=== PATIENT | female | born 1995 | race Caucasian/White ===

== ENCOUNTER 2017-12-22 12:46 | Emergency (ER) | payer OTHER ==
[2017-12-22 15:18] VITALS: BP 122/63
--- NOTE | 2017-12-22 15:43 | UC ---
UC General HPI - HPI Summary HPI Summary: pt is c/o R sided breast soreness and swelling. states often gets swelling and tenderness to both breasts with her period but this is different. denies hx of injury and over use. has no primary care. FMH is not known. - History of Current Complaint Chief Complaint: UCGeneralIllness Stated Complaint: BREAST/ARMPIT PAIN - RIGHT SIDE Time Seen by Provider: 12/22/17 15:33 Hx Obtained From: Patient Hx Last Menstrual Period: 11/28/17 Timing: Constant Pain Intensity: 7 - Allergy/Home Medications Allergies/Adverse Reactions: Allergies Allergy/AdvReac Type Severity Reaction Status Date / Time Adhesive Tape Allergy Rash Verified 12/22/17 15:12 Home Medications: Home Medications Ibuprofen TAB* [Motrin TAB* 400 MG] 400 mg PO Q6H PRN 12/22/17 [History Confirmed 12/22/17] PMH/Surg Hx/FS Hx/Imm Hx Previously Healthy: Yes - Surgical History Surgical History: Yes Surgery Procedure, Year, and Place: wisdom teeth - Family History Known Family History: Positive: Unknown - Social History Occupation: Student Alcohol Use: None Substance Use Type: None Smoking Status (MU): Never Smoked Tobacco - Immunization History Vaccination Up to Date: Yes Review of Systems Constitutional: Negative Skin: Negative Eyes: Negative ENT: Negative Respiratory: Negative Cardiovascular: Negative Gastrointestinal: Negative Genitourinary: Negative Motor: Negative Neurovascular: Negative Musculoskeletal: Negative Neurological: Negative Psychological: Negative Is Patient Immunocompromised?: No All Other Systems Reviewed And Are Negative: Yes Physical Exam Triage Information Reviewed: Yes Appearance: Well-Appearing Vital Signs: Initial Vital Signs Temp 98.4 F 12/22/17 15:09 Pulse 81 12/22/17 15:09 Resp 14 12/22/17 15:09 BP 122/63 12/22/17 15:09 Pulse Ox 100 12/22/17 15:09 Vital Signs Reviewed: Yes Eyes: Positive: Conjunctiva Clear ENT: Positive: Pharynx normal, TMs normal. Negative: Nasal congestion, Nasal drainage Neck: Positive: Supple, Nontender, No Lymphadenopathy Respiratory: Positive: Chest non-tender, Lungs clear, Normal breath sounds Cardiovascular: Positive: RRR, No Murmur Abdomen Description: Positive: Nontender, No Organomegaly, Soft Bowel Sounds: Positive: Present Musculoskeletal: Positive: ROM Intact Neurological: Positive: Alert Psychological: Positive: Age Appropriate Behavior Skin Exam: Normal Skin: Positive: Other - Bilateral breast inspection: There is mild fullness to the tail of the right breast on inspection. That area is also noted to be swollen and tender on palpation. There is no dimpling to the skin, discoloration to the skin or discharge from the breast. There is no associated erythema or warmth. The left breast is without swelling, dimpling, discoloration, tenderness, masses or discharge. There is no supra or infraclavicular adenopathy, axillary adenopathy or epitrochlear adenopathy to either side. Course/Dx - Course Course Of Treatment: 4:33 pt returned citing the surgeon's office has moved plus when she called, they were unsure of why I gave her the referal. I was able to call and speak to Dr Rodas. He states he will see the pt tomorrow at 8:30am at [address] Pt happy with the plan. i wrote the address and f/u appt on her discharge paper as well. - Differential Dx - Multi-Symptom Provider Diagnoses: R breast mass Discharge - Sign-Out/Discharge Documenting (check all that apply): Patient Departure All imaging exams completed and their final reports reviewed: No Studies - Discharge Plan Condition: Stable Disposition: HOME Patient Education Materials: Breast Mass (ED) Referrals: Last Desai [Medical Doctor] - As Soon As Possible Additional Instructions: CALL THE SURGEON TODAY FOR THE NEXT AVAILABLE APPOINTMENT. THIS VIST DOES NOT REPLACE THE FOLLOW UP APPOINTMENT. GO TO THE ER FOR ANY WORSENING - Billing Disposition and Condition Condition: STABLE Disposition: Home
== END 2017-12-22 16:05 | disposition home or self-care (01) ==
LOC: UCCORT 12:46
DX: N63.10 Unspecified lump in the right breast, unspecified quadrant (principal); L23.1 Allergic contact dermatitis due to adhesives
CPT/HCPCS: 99201; G0463

== ENCOUNTER 2018-03-18 11:29 | Emergency (ER) | payer OTHER ==
[2018-03-18 11:47] VITALS: BP 119/75
--- NOTE | 2018-03-18 11:51 | UC ---
Throat Pain/Nasal Micheal HPI - HPI Summary HPI Summary: Pt with 5 days head congestion, pnd, cough and frontal DONALDSON. states ears congeste.d no fevers, chills. little relief with OTC meds. no rash. no sob, cough. no dysuria no sick contact Pt's medications reviewed this visit - History of Current Complaint Chief Complaint: UCGeneralIllness Stated Complaint: FEVER, HEAD CONGESTION Time Seen by Provider: 03/18/18 11:51 Hx Obtained From: Patient Hx Last Menstrual Period: 02/22/18 ?: No Onset/Duration: Gradual Onset Pain Intensity: 5 - Allergies/Home Medications Allergies/Adverse Reactions: Allergies Allergy/AdvReac Type Severity Reaction Status Date / Time Adhesive Tape Allergy Rash Verified 12/22/17 15:12 PMH/Surg Hx/FS Hx/Imm Hx Previously Healthy: Yes - Surgical History Surgical History: Yes Surgery Procedure, Year, and Place: wisdom teeth - Family History Known Family History: Positive: Non-Contributory - Social History Lives: With Family Alcohol Use: None Substance Use Type: None Smoking Status (MU): Never Smoked Tobacco - Immunization History Vaccination Up to Date: Yes Review of Systems All Other Systems Reviewed And Are Negative: Yes Constitutional: Positive: Fatigue ENT: Positive: Nasal Discharge, Sinus Congestion, Sinus Pain/Tenderness Respiratory: Positive: Negative Physical Exam - Summary Physical Exam Summary: Vital Signs Reviewed: Yes A+Ox3, no distress Eyes: Conjunctiva Clear, ASHOK. EOM intact and full ENT: Hearing grossly normal TM x 2 clear, turbinates inflammed and boggy + PND + TTP max sinuses, mmoist, uvula midline, no exudate, no erythema Neck: Positive: Supple Respiratory: Positive: No respiratory distress, No accessory muscle use + CTA throughout no w/r Cardiovascular: RRR nl s1, s2 no m/r CBT <2 sec abd soft + BS nt/nd no guarding, no distension Musculoskeletal Exam: CROWELL x 4 without difficulty Strength Intact, ROM Intact Neurological: Positive: Alert, + sensation throughout Psychological: Positive: Normal Response To Family Skin: Positive: no rash, no ecchymosis Triage Information Reviewed: Yes Vital Signs: Initial Vital Signs Temp 98.5 F 03/18/18 11:44 Pulse 73 03/18/18 11:44 Resp 18 03/18/18 11:44 BP 119/75 03/18/18 11:44 Pulse Ox 100 03/18/18 11:44 Throat Pain/Nasal Course/Dx - Course Course Of Treatment: Pt with progressive sinus congestion, frontal headache and pressure. vss. exam c/w rhinosinusitis. Rx abx. flonase. motrin/apap. return precautions. humidified air. secretion precautions - Differential Dx/Diagnosis Provider Diagnosis: Rhinosinusitis Discharge - Sign-Out/Discharge Documenting (check all that apply): Patient Departure All imaging exams completed and their final reports reviewed: No Studies - Discharge Plan Condition: Stable Disposition: HOME Prescriptions: Amoxicillin PO (*) [Amoxicillin 500 MG CAP*] 500 mg PO Q12H #20 cap Fluticasone NASAL SPRAY 50MCG* [Flonase NASAL SPRAY 50MCG*] 2 spray BOTH NARES DAILY #1 btl Patient Education Materials: Rhinosinusitis (ED) Forms: *Work Release Referrals: No Primary Care Phys,NOPCP [Primary Care Provider] - Additional Instructions: - Stay well hydrated. Drink plenty of non-alcoholic, non-caffinated beverages. - Alternate ibuprofen (Advil, Motrin) 600mg and Tylenol every 3 hours for pain or fever. Take with food. Do NOT take for more than 4-5 days. - These infections are spread by secretions - do NOT share eating or drinking utensils - clean items you share with other people such as cell phones, computer mouse, TV remote, computer tablets,etc. Once you have been antibiotics for 2 days, change your toothbrush and your pillowcase. - get plenty of restful sleep - humidify the air in the room where you sleep - boil water, run a hot steam shower, vaporizer, cups of water by heat register - okay to take over the counter decongestant and cough medication - use nasal spray as prescribed - contact your doctor or return with questions or concerns - Billing Disposition and Condition Condition: STABLE Disposition: Home
== END 2018-03-18 12:07 | disposition home or self-care (01) ==
LOC: UCCORT 11:29
DX: J32.9 Chronic sinusitis, unspecified (principal)
CPT/HCPCS: 99212; G0463